=== PATIENT | female | born 2000 | race Caucasian/White ===

== ENCOUNTER 2021-12-17 21:49 | Emergency (ER) | payer BC ==
[~2021-12-17] VITALS: Ht 160 cm; Wt 50.0 kg
[2021-12-17 22:26] VITALS: BP 134/82; PULSE 98; TEMP 98.7
[2021-12-17] MEDS ORDERED: CEPHALEXIN500 M1 PO (22:55)
== END 2021-12-17 23:08 | disposition home or self-care (01) ==
LOC: COL.ER 21:49
DX: H92.02 Otalgia, left ear (principal)